=== PATIENT | female | born 1985 | race Caucasian/White ===

== ENCOUNTER 2019-07-06 10:51 | Emergency (ER) | payer OTHER ==
[2019-07-06 11:05] VITALS: BP 115/80; PULSE 96
--- NOTE | 2019-07-06 11:07 | EDM.PDOC ---
ED HPI GENERAL MEDICAL PROBLEM - General Chief Complaint: Back Pain or Injury Stated Complaint: SLIPPED AND FELL LOWER BACK PAIN Time Seen by Provider: 07/06/19 11:03 Source of Information: Reports: Patient History Limitations: Reports: No Limitations - History of Present Illness INITIAL COMMENTS - FREE TEXT/NARRATIVE: HISTORY AND PHYSICAL: History of present illness: Patient is a 34-year-old female who presents to the emergency room today with complaints of low back pain. She states she was going outside to warp picker her dog when she slipped and fell on the ice landing on her back. She denies hitting her head or having any loss of consciousness. Denies any other extremity involvement mid. Offers no systemic complaints. She denies any chance of . Review of systems: As per history of present illness and below otherwise all systems reviewed and negative. Past medical history: As per history of present illness and as reviewed below otherwise noncontributory. Surgical history: As per history of present illness and as reviewed below otherwise noncontributory. Social history: See social history for further information Family history: As per history of present illness and as reviewed below otherwise noncontributory. Physical exam: General: Well-developed and well-nourished 34-year-old female. Alert and oriented. Nontoxic appearing and in no acute distress. HEENT: Atraumatic, normocephalic, pupils equal and reactive bilaterally, negative for conjunctival pallor or scleral icterus, mucous membranes moist, TMs normal bilaterally, throat clear, neck supple, nontender, trachea midline. No drooling or trismus noted. No meningeal signs. No hot potato voice noted. Lungs: Clear to auscultation, breath sounds equal bilaterally, chest nontender. Heart: S1S2, regular rate and rhythm without overt murmur Abdomen: Soft, nondistended, nontender. Negative for masses or hepatosplenomegaly. Negative for costovertebral tenderness. Pelvis: Stable nontender. C-spine/Back: No pinpoint vertebral tenderness upon palpation. No crepitus, step -offs or obvious deformities. Paraspinous muscular tenderness to the lumbar region bilaterally. Patient is ambulatory into the emergency room without difficulty or deficit. Able to rock back on heels and walk on toes. Denies any urinary or fecal incontinence. Denies any numbness, tingling or saddle paresthesia. Skin: Intact, warm, dry. No lesions or rashes noted. Extremities: Moves all extremities per self without difficulty or deficits, negative for cords or calf pain. Neurovascular unremarkable. Neuro: Awake, alert, oriented. Cranial nerves II through XII unremarkable. Cerebellum unremarkable. Motor and sensory unremarkable throughout. Exam nonfocal. Notes: X-ray shows no acute findings. There are multiple gallstones in the right lower abdomen which is an incidental finding. We did discuss these findings with the patient. She does feel relief with the Toradol and Norflex and was given here. Supportive care measures were reviewed and discussed. Voices understanding and is agreeable to plan of care. Denies any further questions or concerns at this time. Diagnostics: Lumbar x-ray Therapeutics: Norflex, Toradol Prescription: Diclofenac Flexeril Impression: Acute lumbar back pain Plan: 1. The medication you received today does cause drowsiness, so do not drive for the remaining day 2. When resting please lay on a flat firm surface. Limit your immobility to prevent muscle stiffness. Get up to ambulate/move around/gentle stretching multiple times throughout the day. May alternate heat and ice to the painful areas 3. Tylenol as needed for back pain. Otherwise take the prescribed Flexeril and diclofenac as directed. Diclofenac is an anti-inflammatory so do not take any additional NSAIDs with this medication, such as ibuprofen or Aleve. Flexeril as a muscle relaxant, this medication may cause drowsiness a do not take it will driving her needing to be functioning outside of the house. 4. Please follow-up with your primary care provider as we discussed. Return to the ED as needed and as discussed. Definitive disposition and diagnosis as appropriate pending reevaluation and review of above. low back Pain Score (Numeric/FACES): 8 - Related Data Allergies Allergy/AdvReac Type Severity Reaction Status Date / Time amoxicillin Allergy Rash Verified 01/04/15 22:04 lorazepam [From Ativan] Allergy Other Verified 07/06/19 10:59 ondansetron HCl Allergy Cannot Verified 01/04/15 23:03 [From Zofran (as Remember hydrochloride)] Home Meds: Home Meds Sertraline HCl [Zoloft] 01/04/15 [History] Cyclobenzaprine [Flexeril] 10 mg PO TID PRN #21 tab 07/06/19 [Rx] Diclofenac Sodium [Voltaren] 75 mg PO BIDMEALS PRN #30 tab.cr 07/06/19 [Rx] Past Medical History Other Musculoskeletal History: broke her right ankle before - 2000 - Past Surgical History Other HEENT Surgeries/Procedures: tooth abscess surgery ED ROS GENERAL - Review of Systems Review Of Systems: Comprehensive ROS is negative, except as noted in HPI. ED EXAM,LOWER BACK PAIN/INJURY - Physical Exam Exam: See Below (See dictation) Course - Vital Signs Last Recorded V/S: Last Vital Signs Temp 96.5 F 07/06/19 11:00 Pulse 96 07/06/19 11:00 Resp 18 07/06/19 11:00 BP 115/80 07/06/19 11:00 Pulse Ox 100 07/06/19 11:00 - Orders/Labs/Meds Meds: Medications Discontinued Medications Generic Name Dose Route Start Last Admin Trade Name Freq PRN Reason Stop Dose Admin Ketorolac Tromethamine 60 mg 07/06/19 11:09 07/06/19 11:41 Toradol IM 07/06/19 11:10 60 mg ONETIME ONE Administration Orphenadrine Citrate 60 mg 07/06/19 11:09 07/06/19 11:41 Norflex IM 07/06/19 11:10 60 mg ONETIME ONE Administration Departure - Departure Time of Disposition: 11:11 Disposition: Home, Self-Care 01 Clinical Impression: Acute lumbar back pain Qualifiers: Back pain laterality: bilateral Sciatica presence: without sciatica Qualified Code(s): M54.5 - Low back pain - Discharge Information Prescriptions: Cyclobenzaprine [Flexeril] 10 mg PO TID PRN #21 tab PRN Reason: Muscle Spasm Diclofenac Sodium [Voltaren] 75 mg PO BIDMEALS PRN #30 tab.cr PRN Reason: Pain Instructions: Acute Back Pain, Adult Referrals: Aimee Montoya DO [Primary Care Provider] - Forms: ED Department Discharge Additional Instructions: The following information is given to patients seen in the emergency department who are being discharged to home. This information is to outline your options for follow-up care. We provide all patients seen in our emergency department with a follow-up referral. The need for follow-up, as well as the timing and circumstances, are variable depending upon the specifics of your emergency department visit. If you don't have a primary care physician on staff, we will provide you with a referral. We always advise you to contact your personal physician following an emergency department visit to inform them of the circumstance of the visit and for follow-up with them and/or the need for any referrals to a consulting specialist. The emergency department will also refer you to a specialist when appropriate. This referral assures that you have the opportunity for follow-up care with a specialist. All of these measure are taken in an effort to provide you with optimal care, which includes your follow-up. Under all circumstances we always encourage you to contact your private physician who remains a resource for coordinating your care. When calling for follow-up care, please make the office aware that this follow-up is from your recent emergency room visit. If for any reason you are refused follow-up, please contact the [facility] Emergency Department at and asked to speak to the emergency department charge nurse. [facility] [address] [place] [id number] [facility] [address] [place] [id number] 1. The medication you received today does cause drowsiness, so do not drive for the remaining day 2. When resting please lay on a flat firm surface. Limit your immobility to prevent muscle stiffness. Get up to ambulate/move around/gentle stretching multiple times throughout the day. May alternate heat and ice to the painful areas 3. Tylenol as needed for back pain. Otherwise take the prescribed Flexeril and diclofenac as directed. Diclofenac is an anti-inflammatory so do not take any additional NSAIDs with this medication, such as ibuprofen or Aleve. Flexeril as a muscle relaxant, this medication may cause drowsiness a do not take it will driving her needing to be functioning outside of the house. 4. Please follow-up with your primary care provider as we discussed. Return to the ED as needed and as discussed.
[2019-07-06] MEDS ORDERED: Ketorolac 60 MG/2 ML SDV IM ONE (11:09)
--- NOTE | 2019-07-06 11:59 | CR ---
INDICATION: Fall. Low back pain. Technique : Three views lumbar spine. FINDINGS: Minimal lumbar scoliosis. Multiple gallstones in the right lower abdomen. Mild degenerative and hypertrophic changes in the lumbar spine. Mild lower lumbar facet arthropathy. No acute fracture or subluxation in lumbar spine. Remainder negative. Dictated by Elijah Hopkins MD @ Jul 06 2019 11:57AM Signed by Dr. Elijah Hopkins @ Jul 06 2019 11:57AM
== END 2019-07-06 12:31 | disposition home or self-care (01) ==
LOC: MW.ED 10:51
DX: M54.5 Low back pain (principal); Z88.0 Allergy status to penicillin; Z88.8 Allergy status to other drugs, medicaments and biological substances; Z79.899 Other long term (current) drug therapy; W00.0XXA Fall on same level due to ice and snow, initial encounter
CPT/HCPCS: 72100; 96372; 99283; J1885; J2360

== ENCOUNTER 2021-05-09 13:57 | Emergency (ER) | payer OTHER ==
--- NOTE | 2021-05-09 15:30 | EDM.PDOC ---
ED HPI GENERAL MEDICAL PROBLEM - General Chief Complaint: Genitourinary Problem Stated Complaint: REALLY INTENSE PAIN IN KIDNEYS Time Seen by Provider: 05/09/21 14:30 Source of Information: Reports: Patient History Limitations: Reports: No Limitations - History of Present Illness INITIAL COMMENTS - FREE TEXT/NARRATIVE: HISTORY AND PHYSICAL: History of present illness: Patient is a 36-year-old female who presents to the emergency room with complaints of left flank pain and unresolved UTI. Patient states she was diagnosed with a urinary tract infection on 04/29/2021 and was placed on Macrobid. Her symptoms did not improve by 05/03/2021 and was switched over to Bactrim. This prescription was prescribed for 10 days although patient states she feels worse and now has left flank pain. Patient denies any fever, chills, headache, change in vision, syncope or near syncope. Denies any chest pain, back pain, shortness of breath or cough. Denies any abdominal pain, nausea, vomiting, diarrhea, constipation or dysuria. Has not noted any blood in urine or stool. Patient has been eating and drinking appropriately. No recent travel or sick contacts. Review of systems: As per history of present illness and below otherwise all systems reviewed and negative. Past medical history: As per history of present illness and as reviewed below otherwise noncontributory. Surgical history: As per history of present illness and as reviewed below otherwise noncontributory. Social history: See social history for further information Family history: As per history of present illness and as reviewed below otherwise noncontributory. Physical exam: General: Well developed and well nourished. Alert and orientated x 3. Nontoxic in appearance and in no acute distress. Vital signs are stable and have been reviewed by me. Nursing notes were reviewed. HEENT: Atraumatic, normocephalic, pupils equal and reactive bilaterally, negative for conjunctival pallor or scleral icterus, mucous membranes moist, trachea midline. No drooling or trismus noted. No meningeal signs. No hot potato voice noted. Lungs: Clear to auscultation bilaterally. No wheezes, rales, or rhonchi. Chest nontender. Normal work of breathing, no accessory muscles used. Heart: S1S2, regular rate and rhythm without overt murmur, gallops, or rubs. No JVD. No peripheral edema Abdomen: Soft, nondistended, nontender. Normoactive bowel sounds. Negative for masses. Mild left costovertebral tenderness. Skin: Intact, warm, dry. No lesions or rashes noted. Hematologic: No petechiae or purpra. Mucosa appropriate color and normal nail bed color and refill. Extremities: Atraumatic, moves all extremities per self without difficulty or deficits, negative for cords or calf pain. Neurovascular unremarkable. Neuro: Awake, alert, oriented. Cranial nerves II through XII unremarkable. Cerebellum unremarkable. Motor and sensory unremarkable throughout. Exam nonfocal. Psychiatric: Mood and affect are appropriate. Normal thought process. Answering questions appropriately. Please note that the patient was seen and evaluated during the 2019 SARS-CoV-2 novel coronavirus pandemic period. Community viral transmission is ongoing at time of this encounter and the emergency department is operating under pandemic response procedures. Medical Decision Making: Patient does continue to have urinary tract infection, blood noted. We discussed doing a CT scan to rule out stone, she would like to move forward with this. CT shows: Large 11 x 8 mm stone in the left renal pelvis with minimal dilatation of the collecting system. The stone is likely intermittently obstructing. No other stones. Cholelithiasis. I have talked with the patient about today's findings, in addition to providing specific details for plan of care. I did give her phone numbers to call for urology follow-up. Encouraged she follows up in the next few days. We will switch her antibiotic to Cipro. She does request pain medication. Has an allergy to Zofran, states she is used Phenergan suppositories without difficulty. Medication education was reviewed and discussed with patient and at bedside. Reassessment at the time of disposition demonstrates that the patient is in no acute distress. The patient is stable for discharge, counseling was provided and we discussed in great detail signs and symptoms that would prompt them to return to the Emergency Department. Medication, follow up and supportive care measures were reviewed and discussed. Voices understanding and is agreeable to plan of care. Denies any further questions or concerns at this time. Diagnostics: CBC, CMP, UA, urine , CT abdomen and pelvis Therapeutics: Rocephin Prescription: Cipro, [place], Phenergan suppository Impression: UTI Kidney stone, left Plan: 1. You were evaluated today on an emergent basis. Please stop the antibiotic you are currently taking. You can try the Cipro this evening or tomorrow morning. Take this twice daily over the next 7 days. You do have an 11 x 8 mm stone in the left kidney. You do need to call urology to set up a follow-up appointment as this will need to be removed. 2. You can alternate Tylenol and ibuprofen as needed for pain and fever management. [place] for moderate to severe pain. This medication may cause drowsiness so do not take it while driving or needing to be functioning outside of the house. 3. We encourage you to follow up with your primary care provider and Urology in the next few days for re-evaluation and further care/management. 4. If your symptoms should worsen, new symptoms develop or any of the signs and symptoms we discussed should arise please return to the emergency room or call 911 (if needed). Definitive disposition and diagnosis as appropriate pending reevaluation and review of above. left flank Pain Score (Numeric/FACES): 7 - Related Data Allergies Allergy/AdvReac Type Severity Reaction Status Date / Time amoxicillin Allergy Rash Verified 05/09/21 14:16 ondansetron HCl Allergy Cannot Verified 05/09/21 14:16 [From Zofran (as Remember hydrochloride)] Home Meds: Home Meds Sertraline HCl [Zoloft] 100 mg PO DAILY 01/04/15 [History] Desvenlafaxine Succinate [Desvenlafaxine Succinate ER] 50 mg PO DAILY 08/09/19 [History] Nortriptyline HCl [Pamelor] 25 mg PO BEDTIME 08/09/19 [History] Propranolol HCl [Propranolol HCl ER] 120 mg PO BEDTIME 08/09/19 [History] Rizatriptan Benzoate [Rizatriptan] 10 mg PO DAILY PRN 08/09/19 [History] hydrOXYzine HCL [Hydroxyzine HCl] 25 mg PO DAILY PRN 08/09/19 [History] Ciprofloxacin HCl [Cipro] 500 mg PO BID 7 Days #14 tablet 05/09/21 [Rx] Hydrocodone/Acetaminophen [HYDROcodone-Acetaminophen 5-325 MG] 1 - 2 tab PO Q4HR PRN #20 tablet 05/09/21 [Rx] Past Medical History Other Musculoskeletal History: broke her right ankle before - 2000 Other Neuro History: brain cancer - Infectious Disease History Infectious Disease History: Reports: Chicken Pox - Past Surgical History Other HEENT Surgeries/Procedures: tooth abscess surgery GI Surgical History: Reports: Appendectomy Social & Family History - Family History Family Medical History: No Pertinent Family History - Tobacco Use Tobacco Use Status *Q: Never Tobacco User - Recreational Drug Use Recreational Drug Use: No ED ROS GENERAL - Review of Systems Review Of Systems: Comprehensive ROS is negative, except as noted in HPI. ED EXAM, RENAL/ - Physical Exam Exam: See Below (See dictation) Course - Vital Signs Last Recorded V/S: Last Vital Signs Temp 97.6 F 05/09/21 14:12 Pulse 93 05/09/21 14:12 Resp 16 05/09/21 14:12 BP 99/80 05/09/21 14:12 Pulse Ox 96 05/09/21 14:12 - Orders/Labs/Meds Orders: Active Orders 24 hr Category Date Time Status CMP [COMPREHENSIVE METABOLIC PN,CMP] [CHEM] Stat Lab 05/09/21 15:50 Received CULTURE URINE [MREF] Stat Lab 05/09/21 14:51 Received cefTRIAXone [Rocephin in Dextrose,Iso-Osm 1 GM/50 ML] 1 Med 05/09/21 16:16 Active gm Premix Bag 1 bag IV ONETIME Medication Orders Ceftriaxone Sodium/Dextrose 1 (gm/ Premix) 50 mls @ 100 mls/hr IV ONETIME ONE Stop: 05/09/21 16:45 Last Admin: 05/09/21 16:29 Dose: 100 mls/hr Documented by: KACEY Labs: Laboratory Tests 05/09/21 05/09/21 05/09/21 Range/Units 14:51 14:51 15:50 WBC 6.18 (4.0-11.0) K/uL RBC 4.58 (4.30-5.90) M/uL Hgb 13.9 (12.0-16.0) g/dL Hct 39.6 (36.0-46.0) % MCV 86.5 (80.0-98.0) fL MCH 30.3 (27.0-32.0) pg MCHC 35.1 (31.0-37.0) g/dL RDW Std Deviation 39.3 (28.0-62.0) fl RDW Coeff of Avery 13 (11.0-15.0) % Plt Count 219 (150-400) K/uL MPV 10.10 (7.40-12.00) fL Neut % (Auto) 68.6 (48.0-80.0) % Lymph % (Auto) 20.6 (16.0-40.0) % Brooke % (Auto) 7.8 (0.0-15.0) % Eos % (Auto) 2.8 (0.0-7.0) % Baso % (Auto) 0.2 (0.0-1.5) % Neut # (Auto) 4.3 (1.4-5.7) K/uL Lymph # (Auto) 1.3 (0.6-2.4) K/uL Brooke # (Auto) 0.5 (0.0-0.8) K/uL Eos # (Auto) 0.2 (0.0-0.7) K/uL Baso # (Auto) 0.0 (0.0-0.1) K/uL Nucleated RBC % 0.0 /100WBC Nucleated RBCs # 0 K/uL Urine Color YELLOW Urine Appearance CLOUDY Urine pH 6.0 (5.0-8.0) Ur Specific [place] >= 1.030 (1.001-1.035) Urine Protein 30 H (NEGATIVE) mg/dL Urine Glucose (UA) NEGATIVE (NEGATIVE) mg/dL Urine Ketones NEGATIVE (NEGATIVE) mg/dL Urine Occult Blood LARGE H (NEGATIVE) Urine Nitrite NEGATIVE (NEGATIVE) Urine Bilirubin NEGATIVE (NEGATIVE) Urine Urobilinogen 0.2 (<2.0) EU/dL Ur Leukocyte Esterase SMALL H (NEGATIVE) Urine RBC 15-20 (0-2/HPF) Urine WBC 14-16 (0-5/HPF) Ur Epithelial Cells MODERATE (NONE-FEW) Urine Bacteria 2+ H (NEGATIVE) Urine Mucus LIGHT (NONE-MOD) Urine HCG, Qual NEGATIVE (NEGATIVE) Meds: Medications Generic Name Dose Route Start Last Admin Trade Name Freq PRN Reason Stop Dose Admin Ceftriaxone Sodium/Dextrose 1 50 mls @ 100 mls/hr 05/09/21 16:16 05/09/21 16:29 gm/ Premix IV 05/09/21 16:45 100 mls/hr ONETIME ONE Administration Departure - Departure Time of Disposition: 16:42 Disposition: Home, Self-Care 01 Clinical Impression: UTI, Urinary tract infectious disease, Kidney stone - Discharge Information Prescriptions: Ciprofloxacin HCl [Cipro] 500 mg PO BID 7 Days #14 tablet Hydrocodone/Acetaminophen [HYDROcodone-Acetaminophen 5-325 MG] 1 - 2 tab PO Q4HR PRN #20 tablet PRN Reason: Pain (Moderate 4-6) Instructions: Kidney Stones, [id number] Referrals: Aimee Montoya DO [Primary Care Provider] - Forms: ED Department Discharge Additional Instructions: The following information is given to patients seen in the emergency department who are being discharged to home. This information is to outline your options for follow-up care. We provide all patients seen in our emergency department with a follow-up referral. The need for follow-up, as well as the timing and circumstances, are variable depending upon the specifics of your emergency department visit. If you don't have a primary care physician on staff, we will provide you with a referral. We always advise you to contact your personal physician following an emergency department visit to inform them of the circumstance of the visit and for follow-up with them and/or the need for any referrals to a consulting specialist. The emergency department will also refer you to a specialist when appropriate. This referral assures that you have the opportunity for follow-up care with a specialist. All of these measure are taken in an effort to provide you with optimal care, which includes your follow-up. Under all circumstances we always encourage you to contact your private physician who remains a resource for coordinating your care. When calling for follow-up care, please make the office aware that this follow-up is from your recent emergency room visit. If for any reason you are refused follow-up, please contact the [facility] Emergency Department at and asked to speak to the emergency department charge nurse. Dr. Whiting and Dr Encarnacion [facility] - Urology [address] [place] [address] (Located on 5th Floor) [place] [address] [facility] [address] [place] [address] [address] Vincenzo Novak [facility] - Urology [facility] [address] [address] Alejo [facility] [address] [place] [address] Thank you for choosing the [facility] emergency department in [place] for your medical needs today. It was a pleasure caring for you. Today you were seen in the emergency department for UTI and kidney stone. 1. You were evaluated today on an emergent basis. Please stop the antibiotic you are currently taking. You can try the Cipro this evening or tomorrow morning. Take this twice daily over the next 7 days. You do have an 11 x 8 mm stone in the left kidney. You do need to call urology to set up a follow-up appointment as this will need to be removed. 2. You can alternate Tylenol and ibuprofen as needed for pain and fever management. [place] for moderate to severe pain. This medication may cause drowsiness so do not take it while driving or needing to be functioning outside of the house. 3. We encourage you to follow up with your primary care provider and Urology in the next few days for re-evaluation and further care/management. 4. If your symptoms should worsen, new symptoms develop or any of the signs and symptoms we discussed should arise please return to the emergency room or call 911 (if needed). Sepsis Event Note (ED) - Evaluation Sepsis Screening Result: No Definite Risk - Focused Exam Vital Signs: Vital Signs Temp Pulse Resp BP Pulse Ox 05/09/21 14:12 97.6 F 93 16 99/80 96 - My Orders Last 24 Hours: My Active Orders 05/09/21 14:51 CULTURE URINE [MREF] Stat 05/09/21 15:50 CMP [COMPREHENSIVE METABOLIC PN,CMP] [CHEM] Stat 05/09/21 16:16 cefTRIAXone [Rocephin in Dextrose,Iso-Osm 1 GM/50 ML] 1 gm Premix Bag 1 bag IV ONETIME - Assessment/Plan Last 24 Hours: My Active Orders 05/09/21 14:51 CULTURE URINE [MREF] Stat 05/09/21 15:50 CMP [COMPREHENSIVE METABOLIC PN,CMP] [CHEM] Stat 05/09/21 16:16 cefTRIAXone [Rocephin in Dextrose,Iso-Osm 1 GM/50 ML] 1 gm Premix Bag 1 bag IV ONETIME
[2021-05-09] MEDS ORDERED: cefTRIAXone 1 GM in Premix Bag 1 BAG IV ONE (16:16)
--- NOTE | 2021-05-09 16:24 | CT ---
INDICATION: Left flank pain. TECHNIQUE: CT abdomen and pelvis without contrast. COMPARISON: None. FINDINGS: Lower chest: Unremarkable. Liver: Normal in size and attenuation. No suspicious masses. Gallbladder and bile ducts: Numerous gallbladder stones. No inflammation and no biliary dilatation. Pancreas: Unremarkable. No mass or inflammation. Spleen: Normal in size. No masses. Adrenal glands: Normal in size. No nodules. Kidneys: Large stone in the left renal pelvis measures 11 x 8 mm. No other kidney or ureteral stones. Minimal dilatation of the left renal pelvis. Kidneys otherwise unremarkable. GI tract: Unremarkable. Normal in caliber. No sign of mass or inflammation. Normal appendix. Vasculature: Unremarkable. Lymph nodes: No lymphadenopathy. Abdominal wall/Omentum/Peritoneum: Unremarkable. No sign of mass or infiltration. No free air or significant free fluid. Pelvis: Unremarkable. No pelvic masses. Bones: Unremarkable for age. IMPRESSION: 1. Large 11 x 8 mm stone in the left renal pelvis with minimal dilatation of the collecting system. The stone is likely intermittently obstructing. No other stones. 2. Cholelithiasis. Please note that all CT scans at this facility use dose modulation, iterative reconstruction, and/or weight-based dosing when appropriate to reduce radiation dose to as low as reasonably achievable. Dictated by Baldemar Bejarano MD @ 05/09/2021 4:22:56 PM (Electronically Signed)
[2021-05-09 17:09] VITALS: BP 113/79; PULSE 88
[2021-05-09 17:22] LABS: CARBON DIOXIDE,CO2 23.1 mmol/L (21.0-32.0); POTASSIUM,K 4.7 mmol/L (3.5-5.1)
== END 2021-05-09 17:10 | disposition home or self-care (01) ==
LOC: MW.ED 13:57
DX: N39.0 Urinary tract infection, site not specified (principal); N20.0 Calculus of kidney; Z88.0 Allergy status to penicillin; Z88.8 Allergy status to other drugs, medicaments and biological substances; Z79.899 Other long term (current) drug therapy
CPT/HCPCS: 36415; 74176; 80053; 81001; 81025; 85025; 87086; 96365; 99284; J0696

== ENCOUNTER 2021-05-31 23:57 | Emergency (ER) | payer OTHER ==
[2021-06-01] MEDS ORDERED: Morphine 4 MG/ML VIAL ONE (00:38)
[2021-06-01] MEDS ORDERED: Morphine 4 MG/ML VIAL IVPUSH ONE (00:39)
[2021-06-01] MEDS ORDERED: Lactated Ringers 1,000 ML IV SCH (01:00)
[2021-06-01 01:12] LABS: BLOOD UREA NITROGEN,BUN 17 mg/dL (7.0-18.0); CARBON DIOXIDE,CO2 27.7 mmol/L (21.0-32.0); CHLORIDE,CL 102 mmol/L (98-107); GLUCOSE RANDOM 122 mg/dL (74-106); POTASSIUM,K 3.8 mmol/L (3.5-5.1); SODIUM,NA 137 mmol/L (136-145)
[2021-06-01] MEDS ORDERED: Ketorolac 30 MG/ML SDV IVPUSH ONE (01:47)
[2021-06-01] MEDS ORDERED: HYDROmorphone 1 MG/ML Syringe IVPUSH ONE (02:28)
--- NOTE | 2021-06-01 03:57 | CT ---
INDICATION: Left flank pain. Recent left nephrostomy tube removal. COMPARISON: 05/09/2021. TECHNIQUE: CT examination of the abdomen and pelvis was performed without contrast enhancement using 3 mm thick axial sections from the lung bases through the pubic symphysis. Oral contrast was not administered. Please note that all CT scans at this facility use dose modulation, iterative reconstruction, and/or weight-based dosing when appropriate to reduce radiation dose to as low as reasonably achievable. FINDINGS: In the abdomen, the unenhanced liver, spleen, pancreas, and adrenals are normal in appearance. There is new moderate left hydronephrosis with new mild left hydroureter extending to multiple small calculi in the left distal ureter adjacent to the UVJ. The previously seen calculus in the left renal pelvis has been fragmented. There is a dominant residual fragment in the left renal pelvis measuring 8 millimeters in diameter. There are multiple small calculus fragments now present in the lower pole of the left kidney, the posterior interpolar region, and in the upper pole. There is normal appearance of the right kidney with no sign of calculus or hydronephrosis. There is no sign of abnormality in the right ureter with no sign of dilatation or calculi. There is stable prominent cholelithiasis, with a large number of peripherally calcified faceted calculi in the gallbladder. There is no sign of gallbladder wall thickening or pericholecystic fluid. The abdominal aorta is normal in caliber with no sign of dilatation. There is no sign of retroperitoneal mass or adenopathy. The stomach, loops of small bowel, and colon in the abdomen are normal in appearance. In the pelvis, the appendix is nonvisualized, but there is no sign of an inflammatory process in the area of the appendix. Again seen are surgical clips in the area of the appendix consistent with appendectomy. The loops of small bowel and colon in the pelvis are normal in appearance. There is a new 2.3 centimeter left ovarian cyst. The right ovary and uterus are normal in appearance. The urinary bladder is normal in appearance. There is no sign of pelvic or inguinal mass or adenopathy. There is no sign of free air or free fluid in the abdomen or pelvis. The lung bases are clear. There is mild scoliosis of the lumbar spine convex towards the left. IMPRESSION: New moderate left hydronephrosis and mild left hydroureter pre spine multiple small distal ureteral calculus fragments. CT of the abdomen shows fragmentation of the previously seen calculus in the left renal pelvis. 8 millimeter residual calculus fragment in the renal pelvis. Multiple small calculus fragments scattered throughout the left intrarenal collecting system. Stable prominent cholelithiasis with no sign of acute cholecystitis. CT of the pelvis shows a new 2.3 centimeter left ovarian cyst. Please note that all CT scans at this facility use dose modulation, iterative reconstruction, and/or weight-based dosing when appropriate to reduce radiation dose to as low as reasonably achievable. Dictated by George Ramesh MD @ 06/01/2021 3:56:58 AM (Electronically Signed)
[2021-06-01 04:15] VITALS: BP 111/71; PULSE 80
--- NOTE | 2021-06-01 04:24 | EDM.PDOC ---
ED HPI GENERAL MEDICAL PROBLEM - General Chief Complaint: Flank Pain Stated Complaint: RECENT KIDNEY STONE SURGEY, PAIN Time Seen by Provider: 06/01/21 00:17 - History of Present Illness INITIAL COMMENTS - FREE TEXT/NARRATIVE: CHIEF COMPLAINT(S): Abdominal pain HISTORY OF PRESENT ILLNESS: This is a 36-year-old woman with a past medical history of nephrolithiasis status post lithotripsy and indwelling stent placement at [facility] who comes to the emergency department with a chief complaint of abdominal pain. The patient states that she just recently had these procedures done and today was the day that she was to remove her indwelling stent. She states that after removing the stent she started to experience severe left lower quadrant and left flank pain. She denies any nausea or vomiting but states that the pain is so severe that she cannot handle it. She states that she took 2 Aleve, Flint, and a spasm medication which did not help. She denies any radiation of this pain. She denies any relieving factors. She states the exacerbating factor was removal of the stent. She denies any hematuria or dysuria. She denies any fevers or chills. She states that she was feeling just fine prior to this. REVIEW OF SYSTEMS: Constitutional: Denies fever, chills. Eyes: Denies eye pain Ears, Nose, Mouth, & Throat: Denies earache Cardiovascular: Denies chest pain Respiratory: Denies shortness of breath Gastrointestinal: Positive for left lower quadrant pain. Denies Nausea, vomiting, diarrhea, hematochezia. Genitourinary: Positive for left flank pain. Denies hematuria, dysuria Skin:Denies a rash MSK: Denies joint pain Neurological: Denies blurred vision Psychiatric: Denies depression PAST MEDICAL HISTORY: As per history of present illness and as reviewed below otherwise noncontributory. SURGICAL HISTORY: As per history of present illness and as reviewed below otherwise noncontributory. SOCIAL HISTORY: As per history of present illness and as reviewed below otherwise noncontributory. FAMILY HISTORY: As per history of present illness and as reviewed below otherwise noncontributory. EXAMINATION OF ORGAN SYSTEMS/BODY AREAS: Constitutional: Blood pressure is 128/71, heart rate 98, respiratory rate 20 with an oxygen saturation 98% on room air. Temperature 36.8 General: Young woman who appears to be in a moderate amount of pain Psychiatric: Appropriate mood and affect. Eyes: No scleral icterus or conjunctival erythema ENMT: Moist mucous membranes. No pharyngeal erythema Cardiovascular: Regular, rate, and rhythm. No gallops, murmurs, or rubs. Bilateral upper extremity pulses symmetric and intact. No peripheral edema. No JVD. Respiratory: Lungs clear to auscultation bilaterally. No wheezes, rales, or rhonchi. Gastrointestinal: Soft, nondistended, mild tenderness to palpation in the left lower quadrant. No rebound or guarding. Normoactive bowel sounds Genitourinary: No suprapubic tenderness no CVA tenderness. Musculoskeletal: Normal range of motion. Skin: No lesions or abrasions. Neurological: Alert, GCS 15 MEDICAL DECISION MAKING AND COURSE IN THE ED WITH INTERPRETATION/REVIEW OF DIAGNOSTIC STUDIES: This is a 36-year-old man with recent urological procedure secondary to nephrolithiasis who comes to the emergency department with acute onset left lower quadrant and left flank pain after removal of indwelling stent. At this time we will obtain CBC, BMP, urinalysis and hCG. Will obtain a CT abdomen pelvis without contrast for further evaluation given the recent kidney stones. We will provide the patient with 4 mg of IV morphine and 1 L of lactated Ringer's bolus. We we will reevaluate after pain control. Laboratory: CBC is unremarkable. BMP is unremarkable. hCG is negative. Urinalysis reveals hematuria without any nitrites, leukocyte esterase with 1+ urinary bacteria. The radiological images were viewed by myself along with reading the report from the radiologist. CT abdomen pelvis without contrast reveals new moderate left hydronephrosis and mild left hydroureter with multiple small distal utero calculus fragments. There is fragmentation of the previously seen calculus in the left renal pelvis. There is an 8 mm residual calculus fragment in the left pelvis. Multiple small calculus fragments scattered throughout the left intrarenal collecting system. Stable cholelithiasis. The patient did require multiple different pain medication administration however she continued to remain stable. I contacted [facility] in [place] and spoke with urologist Dr. Keene who recommended outpatient pain management, Flomax and to contact his office tomorrow morning. I did discuss this with the patient. She was amenable to this plan and had no further questions. DISPOSITION: The patient was discharged home in stable condition. The patient will follow up with her urologist tomorrow morning via phone call CONDITION: Fair PROCEDURES: None FINAL IMPRESSION(S)/DIAGNOSES: 1. Acute left flank pain likely secondary to multiple small kidney stones Ismael Nunes M.D. Abdominal Pain Score (Numeric/FACES): 10 - Related Data Allergies Allergy/AdvReac Type Severity Reaction Status Date / Time amoxicillin Allergy Rash Verified 06/01/21 00:12 ondansetron HCl Allergy Cannot Verified 06/01/21 00:12 [From Zofran (as Remember hydrochloride)] Home Meds: Home Meds Sertraline HCl [Zoloft] 100 mg PO DAILY 01/04/15 [History] Desvenlafaxine Succinate [Desvenlafaxine Succinate ER] 50 mg PO DAILY 08/09/19 [History] Nortriptyline HCl [Pamelor] 25 mg PO BEDTIME 08/09/19 [History] Propranolol HCl [Propranolol HCl ER] 120 mg PO BEDTIME 08/09/19 [History] Rizatriptan Benzoate [Rizatriptan] 10 mg PO DAILY PRN 08/09/19 [History] hydrOXYzine HCL [Hydroxyzine HCl] 25 mg PO DAILY PRN 08/09/19 [History] Ciprofloxacin HCl [Cipro] 500 mg PO BID 7 Days #14 tablet 05/09/21 [Rx] Hydrocodone/Acetaminophen [HYDROcodone-Acetaminophen 5-325 MG] 1 - 2 tab PO Q4HR PRN #20 tablet 05/09/21 [Rx] Naloxone HCl [Narcan] 4 mg NS ONETIME #1 spray 06/01/21 [Rx] Tamsulosin [Tamsulosin 24 Hr] 0.4 mg PO DAILY #14 cap.er 06/01/21 [Rx] Past Medical History Other Musculoskeletal History: broke her right ankle before - 2000 Other Neuro History: brain cancer - Infectious Disease History Infectious Disease History: Reports: Chicken Pox - Past Surgical History Other HEENT Surgeries/Procedures: tooth abscess surgery GI Surgical History: Reports: Appendectomy Social & Family History - Family History Family Medical History: No Pertinent Family History - Tobacco Use Second Hand Smoke Exposure: No - Caffeine Use Caffeine Use: Reports: None - Recreational Drug Use Recreational Drug Use: No ED ROS GENERAL - Review of Systems Review Of Systems: See Below ED EXAM, GENERAL - Physical Exam Exam: See Below Course - Vital Signs Last Recorded V/S: Last Vital Signs Temp 36.8 C 06/01/21 00:09 Pulse 80 06/01/21 04:15 Resp 18 06/01/21 04:15 BP 111/71 06/01/21 04:15 Pulse Ox 96 06/01/21 04:15 - Orders/Labs/Meds Labs: Laboratory Tests 06/01/21 06/01/21 06/01/21 Range/Units 00:29 00:29 00:29 WBC 8.83 (4.0-11.0) K/uL RBC 4.19 L (4.30-5.90) M/uL Hgb 12.4 (12.0-16.0) g/dL Hct 36.8 (36.0-46.0) % MCV 87.8 (80.0-98.0) fL MCH 29.6 (27.0-32.0) pg MCHC 33.7 (31.0-37.0) g/dL RDW Std Deviation 37.9 (28.0-62.0) fl RDW Coeff of Avery 12 (11.0-15.0) % Plt Count 256 (150-400) K/uL MPV 9.90 (7.40-12.00) fL Neut % (Auto) 74.3 (48.0-80.0) % Lymph % (Auto) 15.6 L (16.0-40.0) % [place] % (Auto) 7.6 (0.0-15.0) % Eos % (Auto) 2.3 (0.0-7.0) % Baso % (Auto) 0.2 (0.0-1.5) % Neut # (Auto) 6.6 H (1.4-5.7) K/uL Lymph # (Auto) 1.4 (0.6-2.4) K/uL [place] # (Auto) 0.7 (0.0-0.8) K/uL Eos # (Auto) 0.2 (0.0-0.7) K/uL Baso # (Auto) 0.0 (0.0-0.1) K/uL Sodium 137 (136-145) mmol/L Potassium 3.8 (3.5-5.1) mmol/L Chloride 102 (98-107) mmol/L Carbon Dioxide 27.7 (21.0-32.0) mmol/L BUN 17 (7.0-18.0) mg/dL Creatinine 1.0 (0.6-1.0) mg/dL Est Cr Clr Drug Dosing 75.63 mL/min Estimated GFR (MDRD) > 60.0 ml/min Glucose 122 H (74-106) mg/dL Calcium 9.0 (8.5-10.1) mg/dL HCG, Quant < 1.0 mIU/mL Urine Color Urine Appearance Urine pH (5.0-8.0) Ur Specific [place] (1.001-1.035) Urine Protein (NEGATIVE) mg/dL Urine Glucose (UA) (NEGATIVE) mg/dL Urine Ketones (NEGATIVE) mg/dL Urine Occult Blood (NEGATIVE) Urine Nitrite (NEGATIVE) Urine Bilirubin (NEGATIVE) Urine Ictotest Urine Urobilinogen (<2.0) EU/dL Ur Leukocyte Esterase (NEGATIVE) Urine RBC (0-2/HPF) Urine WBC (0-5/HPF) Ur Epithelial Cells (NONE-FEW) Urine Bacteria (NEGATIVE) 06/01/21 Range/Units 01:55 WBC (4.0-11.0) K/uL RBC (4.30-5.90) M/uL Hgb (12.0-16.0) g/dL Hct (36.0-46.0) % MCV (80.0-98.0) fL MCH (27.0-32.0) pg MCHC (31.0-37.0) g/dL RDW Std Deviation (28.0-62.0) fl RDW Coeff of Avery (11.0-15.0) % Plt Count (150-400) K/uL MPV (7.40-12.00) fL Neut % (Auto) (48.0-80.0) % Lymph % (Auto) (16.0-40.0) % [place] % (Auto) (0.0-15.0) % Eos % (Auto) (0.0-7.0) % Baso % (Auto) (0.0-1.5) % Neut # (Auto) (1.4-5.7) K/uL Lymph # (Auto) (0.6-2.4) K/uL [place] # (Auto) (0.0-0.8) K/uL Eos # (Auto) (0.0-0.7) K/uL Baso # (Auto) (0.0-0.1) K/uL Sodium (136-145) mmol/L Potassium (3.5-5.1) mmol/L Chloride (98-107) mmol/L Carbon Dioxide (21.0-32.0) mmol/L BUN (7.0-18.0) mg/dL Creatinine (0.6-1.0) mg/dL Est Cr Clr Drug Dosing mL/min Estimated GFR (MDRD) ml/min Glucose (74-106) mg/dL Calcium (8.5-10.1) mg/dL HCG, Quant mIU/mL Urine Color BROWN Urine Appearance SLT CLOUDY Urine pH 6.0 (5.0-8.0) Ur Specific [place] >= 1.030 (1.001-1.035) Urine Protein 100 H (NEGATIVE) mg/dL Urine Glucose (UA) NEGATIVE (NEGATIVE) mg/dL Urine Ketones TRACE H (NEGATIVE) mg/dL Urine Occult Blood LARGE H (NEGATIVE) Urine Nitrite NEGATIVE (NEGATIVE) Urine Bilirubin SMALL H (NEGATIVE) Urine Ictotest NEGATIVE Urine Urobilinogen 0.2 (<2.0) EU/dL Ur Leukocyte Esterase NEGATIVE (NEGATIVE) Urine RBC 50-60 (0-2/HPF) Urine WBC 5-10 (0-5/HPF) Ur Epithelial Cells FEW (NONE-FEW) Urine Bacteria 1+ H (NEGATIVE) Meds: Medications Discontinued Medications Generic Name Dose Route Start Last Admin Trade Name Freq PRN Reason Stop Dose Admin Hydrocodone Bitart/Acetaminophen 1 tab 06/01/21 04:27 06/01/21 04:34 Acetaminophen/Hydrocodone 325-10 Mg Tab PO 06/01/21 04:28 1 tab ONETIME ONE Administration Hydromorphone HCl 1 mg 06/01/21 02:28 06/01/21 02:31 Hydromorphone 1 Mg/Ml Syringe IVPUSH 06/01/21 02:29 1 mg ONETIME ONE Administration Lactated Ringer's 1,000 mls @ 999 mls/hr 06/01/21 01:00 06/01/21 01:24 Ringers, Lactated IV 999 mls/hr ASDIRECTED TATIANA Administration Ketorolac Tromethamine 30 mg 10/27/21 01:47 06/01/21 02:13 Ketorolac 30 Mg/Ml Sdv IVPUSH 06/01/21 01:48 30 mg ONETIME ONE Administration Morphine Sulfate 4 mg 06/01/21 00:39 06/01/21 00:42 Morphine 4 Mg/Ml Vial IVPUSH 06/01/21 00:40 4 mg ONETIME ONE Administration Morphine Sulfate Confirm 06/01/21 00:38 06/01/21 00:42 Morphine 4 Mg/Ml Vial Administered 06/01/21 00:39 Not Given Dose 4 mg .ROUTE .STK-MED ONE Tamsulosin HCl 0.4 mg 06/01/21 04:27 06/01/21 04:34 Tamsulosin 0.4 Mg Cap.Er PO 06/01/21 04:28 0.4 mg ONETIME ONE Administration Departure - Departure Time of Disposition: 04:24 Disposition: Home, Self-Care 01 Condition: Fair Clinical Impression: Kidney stone - Discharge Information *PRESCRIPTION DRUG MONITORING PROGRAM REVIEWED*: No *COPY OF PRESCRIPTION DRUG MONITORING REPORT IN PATIENT NATHANIEL: No Prescriptions: Tamsulosin [Tamsulosin 24 Hr] 0.4 mg PO DAILY #14 cap.er Naloxone HCl [Narcan] 4 mg NS ONETIME #1 spray Instructions: Kidney Stones, [id number] Referrals: PCP,None [Primary Care Provider] - Forms: ED Department Discharge Sepsis Event Note (ED) - Evaluation Sepsis Screening Result: No Definite Risk - Focused Exam Vital Signs: Vital Signs Temp Pulse Resp BP Pulse Ox 06/01/21 04:15 80 18 111/71 96 06/01/21 02:16 75 135/94 H 100 06/01/21 01:26 80 16 126/88 98 06/01/21 00:09 36.8 C 98 20 128/71 99
[2021-06-01] MEDS ORDERED: Tamsulosin 0.4 MG Cap.ER PO ONE (04:27)
[2021-06-01] MEDS ORDERED: Acetaminophen/HYDROcodone 325-10 MG Tab PO ONE (04:27)
== END 2021-06-01 04:40 | disposition home or self-care (01) ==
LOC: MW.ED 23:57
DX: N13.2 Hydronephrosis with renal and ureteral calculous obstruction (principal); Z88.0 Allergy status to penicillin; Z88.8 Allergy status to other drugs, medicaments and biological substances; Z79.899 Other long term (current) drug therapy
CPT/HCPCS: 36415; 74176; 80048; 81001; 84702; 85025; 96374; 96375; 99284; A9270; J1170; J1885; J2270; J7120

== ENCOUNTER 2024-10-26 13:09 | Emergency (ER) | payer BC, OTHER ==
[2024-10-26 15:20] LABS: APPEARANCE,URINE CLOUDY; BILIRUBIN,URINE SMALL (NEGATIVE); COLOR,URINE YELLOW; GLUCOSE,URINE NEGATIVE (NEGATIVE); KETONES,URINE 15 mg/dL (NEGATIVE); LEUKOCYTE ESTERASE,URINE NEGATIVE (NEGATIVE); NITRITE,URINE POSITIVE (NEGATIVE); OCCULT BLOOD,URINE SMALL (NEGATIVE); PH,URINE 5.5 (5.0-8.0); PROTEIN,URINE TRACE mg/dL (NEGATIVE); UROBILINOGEN,URINE 0.2 EU/dL (<2.0)
[2024-10-26 15:25] LABS: RBC,URINE 0-3 (0-2/HPF)
[2024-10-26 15:26] LABS: BACTERIA,URINE 2+ (NEGATIVE); EPITHELIAL CELLS,URINE MANY (NONE-FEW); MUCUS,URINE HEAVY (NONE-MOD)
[2024-10-26] MEDS ORDERED: Sodium Chloride 0.9% 2.5 ML Syringe FLUSH PRN (15:41)
[2024-10-26] MEDS ORDERED: Sodium Chloride 0.9% 10 ML Syringe FLUSH PRN (15:41)
[2024-10-26 17:12] LABS: BASOPHILS ABSOLUTE AUTO 0.06 K/uL (0.00-0.20); BASOPHILS PERCENT AUTO 0.4 % (0.0-1.0); EOSINOPHILS ABSOLUTE AUTO 0.29 K/uL (0.00-0.45); EOSINOPHILS PERCENT AUTO 2.1 % (0.0-6.0); HEMATOCRIT 45.4 % (37.0-47.0); HEMOGLOBIN 15.7 g/dL (12.0-16.0); IMMATURE GRAN ABSOLUTE AUTO 0.07 K/uL (0.00-0.05); IMMATURE GRAN PERCENT AUTO 0.5 % (0.0-0.4); LYMPHOCYTES ABSOLUTE AUTO 2.26 K/uL (1.00-4.80); LYMPHOCYTES PERCENT AUTO 16.2 % (24.0-44.0); MEAN CORPUSCULAR HEMOGLOBIN 30.4 pg (28.0-32.0); MEAN CORPUSCULAR HGB CONC 34.6 g/dL (32.0-36.0); MEAN PLATELET VOLUME 10.2 fL (9.4-12.3); MONOCYTES ABSOLUTE AUTO 0.62 K/uL (0.00-0.80); MONOCYTES PERCENT AUTO 4.4 % (0.0-8.0); NEUTROPHILS ABSOLUTE AUTO 10.65 K/uL (1.80-7.70); NEUTROPHILS PERCENT AUTO 76.4 % (41.0-71.0); PLATELET COUNT,PLT 272 K/uL (150-400); RED BLOOD CELL COUNT 5.16 M/uL (4.10-5.30); WHITE BLOOD CELL COUNT,WBC 13.95 K/uL (3.9-11.3)
[2024-10-26] MEDS: Sodium Chloride 0.9% 1,000 ML IV STA (17:13)
[2024-10-26] MEDS: cefTRIAXone 2 GM in Sodium Chloride 0.9% 50 ML IV STA (17:13)
[2024-10-26 17:44] LABS: A/G RATIO 1.2 (0.9-1.6); ALBUMIN 4.7 g/dL (3.4-5.0); BILIRUBIN TOTAL 0.5 mg/dL (0.2-1.0); CALCIUM 9.6 mg/dL (8.5-10.1); CREATININE 1.1 mg/dL (0.6-1.0); EST CRCL DRUG DOSING (CG) 66.77 mL/min; POTASSIUM,K 4.6 mmol/L (3.5-5.1); PROTEIN TOTAL,TP 8.5 g/dL (6.4-8.2)
[2024-10-26] MEDS: Alum Hydrox/Mag Hydrox/Simeth 15 ML, Lidocaine 2% 5 ML PO STA (18:25)
[2024-10-26] MEDS: Ketorolac 30 MG/ML SDV IVPUSH STA (18:31)
[2024-10-26 20:13] VITALS: BP 107/73; PULSE 78
== END 2024-10-26 20:13 | disposition home or self-care (01) ==
LOC: MW.ED 13:09
DX: K80.80 Other cholelithiasis without obstruction (principal); K59.00 Constipation, unspecified; N30.00 Acute cystitis without hematuria; Z75.8 Other problems related to medical facilities and other health care; Z88.0 Allergy status to penicillin; Z79.899 Other long term (current) drug therapy
CPT/HCPCS: 36415; 74019; 80053; 81001; 81025; 83690; 85025; 87086; 96361; 96365; 96375; 99284; A9270; J0696; J1885; J7030; 99283